=== PATIENT | male | born 1965 | race Caucasian/White ===

== ENCOUNTER 2021-02-07 18:37 | Emergency (ER) | payer OTHER ==
[~2021-02-07] VITALS: Ht 177.8 cm; Wt 86.2 kg
[2021-02-07] MEDS ORDERED: NAPROSYN500 MG PO (19:40)
[2021-02-07] MEDS ORDERED: METHOCARBAMOL750 M1 PO (19:40)
== END 2021-02-07 19:44 | disposition home or self-care (01) ==
LOC: ED 18:37
DX: S20.20XA Contusion of thorax, unspecified, initial encounter (principal); S20.221A Contusion of right back wall of thorax, initial encounter; W19.XXXA Unspecified fall, initial encounter; Y93.89 Activity, other specified; Y92.89 Other specified places as the place of occurrence of the external cause; Y99.8 Other external cause status